=== PATIENT | female | born 1990 | race American Indian/Alaskan Native ===

== ENCOUNTER 2017-03-03 17:41 | Emergency (ER) | payer OTHER ==
[2017-03-03] MEDS ORDERED: TYLENOL PO ONE (18:00)
[2017-03-03 18:35] LABS: Basophils % (Auto) 0.1 % (0.0-1.8); Hematocrit 36.3 % (30.3-42.9); Hemoglobin 11.9 gm/dl (10.1-14.3); Mean Corpuscular HGB Conc 33 % (30-34); Mean Corpuscular Volume 76 fl (79-97); Platelet Count 199 K/mm3 (140-440); Red Blood Count 4.78 M/mm3 (3.65-5.03); Red Cell Distribution Width 16.5 % (13.2-15.2); White Blood Count 7.6 K/mm3 (4.5-11.0)
[2017-03-03 18:39] LABS: Mean Corpuscular Hemoglobin 25 pg (28-32)
[2017-03-03 18:52] LABS: Anion Gap 20 mmol/L; Blood Urea Nitrogen 14 mg/dL (7-17); Calcium 8.7 mg/dL (8.4-10.2); Carbon Dioxide 24 mmol/L (22-30); Chloride 92.3 mmol/L (98-107); Glucose 94 mg/dL (65-100); Potassium 3.7 mmol/L (3.6-5.0); Sodium 133 mmol/L (137-145)
[2017-03-03 18:53] LABS: Bacteria,Urine 2+ /HPF (Negative); Bilirubin,Urine NEG (Negative); Blood,Urine NEG (Negative); Ketones,Urine 20 mg/dL (Negative); Leukocyte Esterase,Urine NEG (Negative); Mucus,Urine FEW /HPF; Nitrite,Urine NEG (Negative)
--- NOTE | 2017-03-04 01:55 | Emergency Department Report ---
ED Fever HPI - General Chief Complaint: Sore Throat Stated Complaint: SORE THROAT/FLU SYMPTOMS Time Seen by Provider: 03/04/17 01:47 Source: patient - History of Present Illness Initial Comments: Patient complain of a fever for the last 3 weeks. Sore throat no other complaints Timing/Duration: week (3 week) Fever Severity/Quality: greater than 102 F Associated Symptoms: denies: denies symptoms, abdominal pain, chest pain, confusion, cough, diaphoresis, headache, muscle aches, nausea/vomiting, rash, shortness of breath, sore throat, stiff neck, syncope, weakness, other ED Review of Systems ROS: Stated complaint: SORE THROAT/FLU SYMPTOMS Other details as noted in HPI Comment: All other systems reviewed and negative Constitutional: chills, fever ENT: throat pain. denies: dental pain, hearing loss, epistaxis, congestion Respiratory: denies: cough, orthopnea, shortness of breath Cardiovascular: denies: chest pain, palpitations, dyspnea on exertion, orthopnea Endocrine: no symptoms reported Gastrointestinal: denies: abdominal pain, nausea, diarrhea Genitourinary: denies: urgency, dysuria, discharge Musculoskeletal: denies: back pain, joint swelling, arthralgia Skin: denies: rash, lesions Neurological: denies: headache, weakness, paresthesias ED Past Medical Hx - Past Medical History Hx Hypertension: Yes - Surgical History Hx Cholecystectomy: Yes - Social History Smoking Status: Current Every Day Smoker Substance Use Type: Alcohol, Marijuana - Medications Home Medications: Home Medications Medication Instructions Recorded Confirmed Last Taken Type Amoxicillin [Amoxicillin TAB] 875 mg PO BID #20 tablet 03/04/17 Unknown Rx ED Physical Exam - General Limitations: No Limitations General appearance: alert, in no apparent distress - Head Head exam: Present: atraumatic - ENT ENT exam: Present: normal exam, other (pharyngeal erythema no tonsillar exudate) - Neck Neck exam: Present: normal inspection, full ROM. Absent: tenderness, meningismus, lymphadenopathy, thyromegaly - Respiratory Respiratory exam: Present: normal lung sounds bilaterally, chest wall tenderness. Absent: wheezes, rales, rhonchi - Cardiovascular Cardiovascular Exam: Present: regular rate, normal rhythm, normal heart sounds - GI/Abdominal GI/Abdominal exam: Present: soft. Absent: distended, tenderness, guarding, rebound, rigid, normal bowel sounds - Extremities Exam Extremities exam: Present: normal inspection - Back Exam Back exam: Present: normal inspection. Absent: CVA tenderness (R), CVA tenderness (L) - Neurological Exam Neurological exam: Present: alert, oriented X3, CN II-XII intact - Skin Skin exam: Present: warm, intact, normal color ED Course Vital Signs 03/03/17 03/03/17 03/03/17 17:52 18:07 22:40 Temperature 103.1 F H 97.5 F L Pulse Rate 119 H 97 H Respiratory 17 20 18 Rate Blood Pressure 110/65 113/79 O2 Sat by Pulse 99 100 Oximetry - Reevaluation(s) Reevaluation #1: 03/04/17 01:54 Patient stated that she is having better fever down to 97 no nausea no vomiting. ED Medical Decision Making - Lab Data Result diagrams: 03/03/17 17:58 03/03/17 17:58 Critical care attestation.: If time is entered above; I have spent that time in minutes in the direct care of this critically ill patient, excluding procedure time. ED Disposition Clinical Impression: Pharyngitis Disposition: DC-01 TO HOME OR SELFCARE Is pt being admited?: No Condition: Stable Instructions: Pharyngitis (ED) Referrals: PRIMARY CARE, [Primary Care Provider] - 3-5 Days
[2017-03-04 01:59] VITALS: BP 110/75
== END 2017-03-04 02:05 | disposition home or self-care (01) ==
LOC: ED 17:41
DX: J02.9 Acute pharyngitis, unspecified (principal); F17.210 Nicotine dependence, cigarettes, uncomplicated; F12.10 Cannabis abuse, uncomplicated
CPT/HCPCS: 36415; 80048; 81001; 84703; 85025; 87116; 87430; 99283